=== PATIENT | male | born 1950 | race Caucasian/White ===

== ENCOUNTER 2019-11-29 09:51 | Outpatient (CLI) | payer MEDICARE, OTHER, SELFPAY | END 2019-11-29 09:52 | disposition home or self-care (01) | LOC: ANHBWCAUD 09:55 | DX: H90.3 Sensorineural hearing loss, bilateral (principal) | CPT/HCPCS: 92557; 92567 ==

== ENCOUNTER 2020-01-29 12:45 | Outpatient (RCR) | payer OTHER, SELFPAY | END 2020-03-13 23:59 | disposition home or self-care (01) | LOC: ANHBWCAUD 12:45 | DX: Z46.1 Encounter for fitting and adjustment of hearing aid (principal) | CPT/HCPCS: 99199; V5261 ==

== ENCOUNTER 2020-04-25 11:52 | Outpatient (RCR) | payer OTHER, SELFPAY | END 2020-04-25 23:59 | disposition home or self-care (01) | LOC: ANHAUDIO 11:52 | DX: Z46.1 Encounter for fitting and adjustment of hearing aid (principal) | CPT/HCPCS: 99199 ==